=== PATIENT | female | born 1965 | race Caucasian/White ===

== ENCOUNTER 2016-12-30 06:25 | Observation (INO) | payer BC ==
[~2016-12-30] VITALS: Ht 175.3 cm; Wt 99.4 kg
[2017-01-01] MEDS ORDERED: MULTIVITAMINS1 EAC1 PO (06:48)
[2017-01-01] MEDS ORDERED: PRILOSEC DPS20 MG PO (06:48)
[2017-01-01] MEDS ORDERED: NORCO 5-325 TA1 EACH PO (06:49)
--- NOTE | 2017-01-08 09:09 | OR ---
ADMIT: 12/30/2016 RM/LOC: W.08 [facility] MR#: [id number] [id number] [address] [place] [address] Operative/Delivery Room Report SEX: F AGE: 51 : 1965 SURGERY DATE: 12/30/2016 SURGEON: Clive Elkins MD PREOPERATIVE DIAGNOSIS: Previous left-sided breast cancer. The patient desires bilateral mastectomy. POSTOPERATIVE DIAGNOSIS: Previous left-sided breast cancer. The patient desires bilateral mastectomy. PROCEDURE PERFORMED: Bilateral total mastectomy. DAYCARE ASSISTANT: VIKTOR Coleman. ANESTHESIA: General endotracheal. ESTIMATED BLOOD LOSS: Approximately 50 mL. DESCRIPTION OF PROCEDURE: After appropriate informed consent was obtained, the patient was brought to the operating room. General endotracheal anesthesia was induced. The patient's bilateral chest and axilla were prepped and draped in a sterile fashion. A mirror image elliptical incisions were marked out. On the left side, also included her previous lumpectomy scar with that incision. I started on the right side, noncancerous side. I made an incision with a #10 blade, carried this deep with cautery keeping the skin flaps approximately 1 cm thick. The dissection was taken down to the chest wall fascia cephalad and then inferiorly skin flap was created, and again, taken down the chest wall fascia. The breast was then reflected off the chest using cautery. Any bleeding was controlled with cautery. The specimen was oriented with single stitch superiorly, double stitch laterally. Next, the wound was copiously irrigated out with warm saline. Any bleeding again controlled with cautery. A 19-Angolan round Carlos Alberto drain was then placed. With the drain in place, the wound was then temporarily closed with skin eloise. The skin was then closed with 3-0 Monocryl in the dermal layer and running 4-0 Monocryl in the subcuticular layer. Sterile dressings were then applied on the right side. The drain was again sewn in place with a nylon suture and placed to bulb suction. On the left side, again an elliptical incision was made with a #10 blade, included the previous lumpectomy site in the upper outer quadrant of her left breast. Dissection was taken down to the chest wall fascia circumferentially and then the breast was reflected off the chest ADMIT: 12/30/2016 RM/LOC: W.08 [facility] MR#: [id number] [address] [address] [place] [address] Operative/Delivery Room Report SEX: F AGE: 51 : 1965 wall using cautery. The skin flaps were kept approximately 1 cm thick, but given her previous radiation, the skin on the left side was a little more fibrotic. Specimen was oriented with a single stitch superiorly, double stitch laterally. The wound was then copiously irrigated out with warm saline. There were couple vessels in the axilla that were controlled with suture ligatures. With this accomplished, with any bleeding controlled, the 19-Angolan round Carlos Alberto drain was placed. The skin was temporally closed with skin eloise, and then closed with 3-0 Monocryl in the dermal layer and running 4-0 Monocryl in the subcuticular layer. The drain was sewn into place. Sterile dressings applied. The patient tolerated the procedure well and was taken to the recovery room in stable condition. VIKTOR Coleman assisted in this entire procedure. His help was necessary for retraction. Clive Elkins MD/ hermelinda JOB #: [id number] CC: Clive Elkins MD, Attending Physician NO FAMILY PHYSICIAN, Family Physician
== END 2016-12-31 13:25 | disposition home or self-care (01) ==
LOC: WOR 06:25 → EDSTATUS 10:36 → 6PED 12:07 → SSS 15:48 → 6PED 12-31 13:25
PROVIDERS: ADMIT Surgery
PROC: 0HBV0ZZ Excision of Bilateral Breast, Open Approach (ICD-10-PCS; principal; 2016-12-30)
DX: N60.92 Unspecified benign mammary dysplasia of left breast (principal); N60.91 Unspecified benign mammary dysplasia of right breast; Z88.0 Allergy status to penicillin; Z88.8 Allergy status to other drugs, medicaments and biological substances; Z90.49 Acquired absence of other specified parts of digestive tract; Z90.710 Acquired absence of both cervix and uterus; Z98.890 Other specified postprocedural states